=== PATIENT | female | born 1965 | race Caucasian/White ===

== ENCOUNTER 2023-10-30 09:19 | Outpatient (CLI) | payer OTHER, SELFPAY ==
[2023-10-30 14:55] LABS: Strep A DNA Probe* NOT DETECTED (Not Detectd)
== END 2023-10-30 09:20 | disposition home or self-care (01) ==
LOC: KYNREF 09:19
PROVIDERS: PCP Nurse Practitioner Family; Visit Provider Nurse Practitioner Family
DX: J02.9 Acute pharyngitis, unspecified (principal)
CPT/HCPCS: 87651

== ENCOUNTER 2024-09-26 10:05 | Outpatient (CLI) | payer BC, SELFPAY ==
[2024-09-26 15:20] LABS: PCR FLU A POSITIVE PCR FLU A (Negative); PCR FLU B Negative PCR FLU B (Negative); PCR RSV Negative PCR RSV (Negative); SARS PCR* Negative SARS-CoV-2 (Negative)
== END 2024-09-26 10:06 | disposition home or self-care (01) ==
LOC: KYNREF 10:05
PROVIDERS: Visit Provider Nurse Practitioner Family
DX: J11.1 Influenza due to unidentified influenza virus with other respiratory manifestations (principal)
CPT/HCPCS: 87631

== ENCOUNTER 2025-01-14 07:49 | Outpatient (CLI) | payer BC, SELFPAY ==
--- NOTE | 2025-01-14 08:00 | CRLHL7_ITS ---
For Patients: As a result of the Century Cures Act, medical imaging exams and procedure reports are released immediately into your electronic medical record. You may view this report before your referring provider. If you have questions, please contact your health care provider. INDICATION: Pulmonary nodule on chest x-ray TECHNIQUE: CT chest without contrast. COMPARISON: 09/26/2024 and 12/24/2024 chest x-rays FINDINGS: Lungs and pleura: Tiny calcified granuloma in the lingula. Lungs are otherwise clear. No right apical lung nodule. No pleural effusions, pleural thickening, or pneumothorax. Heart and vasculature: Heart size is normal. Thoracic aorta and pulmonary artery are normal in caliber. Lymph nodes/mediastinum: No mediastinal, hilar, or axillary adenopathy. Thyroid gland is normal. Chest wall: No masses. Upper abdomen: Cholelithiasis. Bones: Small area cortical thickening in the anterior right 1st rib accounts for the chest x-ray finding. No suspicious bone lesions. IMPRESSION: 1. No pulmonary nodules. 2. Benign cortical thickening in the right 1st rib accounts for the chest x-ray finding. 3. Cholelithiasis. Please note that all CT scans at this facility use dose modulation, iterative reconstruction, and/or weight-based dosing when appropriate to reduce radiation dose to as low as reasonably achievable. Dictated by Gregory Berg MD @ 01/15/2025 1:27:25 PM (Electronically Signed)
== END 2025-01-14 07:50 | disposition home or self-care (01) ==
LOC: CT 07:50
PROVIDERS: PCP General Practice; Visit Provider Nurse Practitioner Family
DX: R93.89 Abnormal findings on diagnostic imaging of other specified body structures (principal); K80.20 Calculus of gallbladder without cholecystitis without obstruction
CPT/HCPCS: 71250